=== PATIENT | female | born 1980 | race Caucasian/White ===

== ENCOUNTER → 2017-05-08 | Outpatient (CLI) | payer BC ==
[~2017-05-08] MED LIST: ACET-1311 PO; EFF50 PO; PRENTAB26 PO
--- NOTE | 2017-05-09 06:14 | PAP/PSG TECHNICIAN REPORT ---
[facility] Lettuce Cutter Polysomnogram Report Study name: None Report date: 05/09/2017 Study date: 05/08/2017 Referring Physician: DR. HARI TAO Name: ONDINA PORTILLO Interpreting Physician: Murali Dudley M.D. Date of : 1980 Lettuce Cutter: Sharda Garcia RPSGT. Sex: Female Age: 36 Study Type: PSG Weight: 201 lbs Height: 36 years, Height 5' 5" BMI: 33.44 Medications: CYMBALTA 60 MG, LAMICTAL 100 MG, TRAZODONE 50 MG Patient History 36 yr-old female here for a baseline study. She has a history of daytime sleepiness, frequent awakenings, snoring, and witnessed apneas. Her [place] scale is 10. The test was started on room air. ETCO2 testing was not utilized during this study. Room 1 Parameters Monitored NPSG: E1-M2, E2-M1, Fp1-M2, Fp2-M1, F3-M2, F4-M2, F4-M1, C3-M2, C4-M2, C4-M1, O1-M2, O2-M2, O2-M1, T3-M2, T4-M1, P3-M2, P4-M1, CHIN1, CHIN2, HR, EKG, Legs, PFLOW, SNOR, FLOW, CFLOW, Tidal Volume, THOR, ABDO, SpO2, PLTH, CPRESS, ETCO2 Wave, ETCO2, pH Sleep Architecture Sleep Stages Time at Lights Off 9:34:40 PM STAGES Time (min.) TST (%) Time at Lights On 5:38:40 AM Wake 42.0 -- Total Recording Time (TRT) 484.00 min. N1 27.0 6 Total Sleep Period (TSP) 451.5 min. N2 242.5 55 Total Sleep Time (TST) 442.0min. N3 50.0 11 Awake Time 42.0 min. REM 122.5 28 Wake after Sleep Onset 9.5 min. Sleep Efficiency (SE) 91 % Sleep Onset Latency (ROMA) 32.5 min. Number of Stage 1 Shifts None Awakenings 8 Stage Changes 69 Number of REM periods 4 REM 122.5 28 REM Latency 151.0 min. NREM 319.5 72 Body Position Analysis Supine Right Left Side Prone Vertical Total Sleep Time (min.) 465.5 11.5 0.0 11.50 0.0 0.0 Total Sleep Time (%) 97% 3% 0% 3 0% N/A% Total Sleep Time REM (min.) 122.5 0.0 0.0 None 0.0 0.0 Total Sleep Time NREM (min.) 308.0 11.5 0.0 None 0.0 0.0 Intermittent Wake (min.) 35.0 4.5 2.5 None 0.0 0.0 Total Sleep Period (%) 97% None None None None None Arousals Myoclonus (PLM) * Events Count Index Events Count Index Spontaneous 15 2 Events Awake (PLMW) 37 52.9 Respiratory 2 0.4 Events Asleep w/ Arousal (PLMA) 10 1.4 PLM 10 1 Events Asleep w/o Arousal (PLMS) 54 7.3 Snoring 14 2 Total Asleep 64 8.7 Total 40 5 Total 101 13 Respiratory Analysis * CA OA MA CH H RERA Total Count 3 0 0 0 4 2 7 Index 0.4 0.0 0.0 0 0.5 0 1.2 Mean Duration 11.2 0.0 0.0 0.00 15.6 18.1 14.7 Longest Duration 12.1 0.0 0.0 0.00 0.0 18.2 18.2 Respiratory Event Summary Total Supine ~Supine Right Left Prone REM NREM Apneas Count 3 3 0 0 N/A N/A 1 2 Index 0.4 0 0 0.0 N/A N/A 0 0 Hypopneas (4% Desat) Count 4 4 0 0 N/A N/A 2 2 Index 0.5 0.6 0 0.0 N/A N/A 1.0 0.4 Apneas & All Hypopneas Count 7 7 0 0 N/A N/A 3 4 Index 1.0 1 0 0 N/A N/A 1.5 0.8 Respiratory Events (Data Review Specialist+All Hyp+RERA) Count 7 9 0 0 N/A N/A 3 4 Index 1.2 1 0 0.0 N/A N/A 1.5 1.1 Respiratory Related Arousal Count 2 9 0 0 N/A N/A 0 3 Index 0.4 0 0 0 N/A N/A 0 1 Snoring Analysis Supine Right Left Prone REM NREM Total Snore duration 59.6 min Snores count 3,058 4 N/A N/A 62 3,000 3,062 Snore mean duration 1.2 Sec Snores index 426 21 N/A N/A 30.4 563.4 415.7 TST with snoring (%) 13.5% Desaturation Event Summary: Minimum %SpO2 Event Count Mean/Min/Max Duration(sec.) Desaturation Index % Time In Bed > 90 14 22.7 / 4.0 / 58.3 1.8 94.0 86 - 90 2 6.4 / 4.0 / 8.8 4.1 6.0 81 - 85 0 N/A 0.0 0.0 76 - 80 0 N/A 0.0 0.0 71 - 75 0 N/A 0.0 0.0 66 - 70 0 N/A 0.0 0.0 61 - 65 0 N/A 0.0 0.0 56 - 60 0 N/A 0.0 0.0 51 - 55 0 N/A 0.0 0.0 < 50 0 N/A 0.0 0.0 Total REM NREM Awake <50% 0.0 min. 0.0 min. 0.0 min. 0.0 min. 51 - 60% 0.0 min. 0.0 min. 0.0 min. 0.0 min. 61 - 70% 0.0 min. 0.0 min. 0.0 min. 0.0 min. 71 - 80% 0.0 min. 0.0 min. 0.0 min. 0.0 min. 81 - 90% 29.0 min. 0.2 min. 28.5 min. 0.3 min. 91 - 100% 454.9 min. 122.3 min. 291.0 min. 41.6 min. Average 93 93 92 94 Minimum SpO2 88 90 89 88 Desaturation Event Index 1.9 1.5 1.7 4.3 # Desat. Events below 89% 1 N/A N/A 1 Time(%) with Saturation below 89% 0.0 0.0 0.0 0.0 Time(min.) with Saturation below 89% 0.2 0.0 0.0 0.2 Time (mins) REM (mins) NREM (mins) % of TST SpO2 Below 90% 9 2 N7 0.2 SpO2 Below 88% 0 0 0 0 Heart Rate Analysis Min (bpm) Max (bpm) Average (bpm) Awake 54 106 78 NREM 51 104 71 REM 54 102 77 Overall 51 104 73 Supplemental O2 Values Minimum O2 level: None Value Start Time End Time Lettuce Cutter Comments Ms. Portillo slept in the right, left, and supine positions. No cardiac arrhythmias or PLMs noted. No bruxism noted. Snoring was noted and scored as a 2 on a scale of 1 through 5. (0=no snoring, 5=snoring loud enough to be heard through a closed door or down the [address] way) She did not wake up to use the restroom during the night. Ms. Portillo stated that she slept about the same as usual. The final report will be interpreted and signed by a sleep physician. The completed physician report will then be placed in the patient medical record. Therapy (cm H2O) 0 TIB (min.) 484.0 TST (min.) 442.0 Sleep Onset (min.) 32.5 REM Onset From Sleep (min.) 151.0 Sleep Efficiency % 91 Wakefulness (%) 9 Wakefulness (min.) 42.0 NREM 1 (%) 6 NREM 1 (min.) 27.0 NREM 2 (%) 55 NREM 2 (min.) 242.5 NREM 3 (%) 11 NREM 3 (min.) 50.0 REM (%) 28 REM (min.) 122.5 # Arousals 40 Arousal Index 5 # Snore 3,062 Snore Index 415.7 AHI 1.0 AHI Supine 1 AHI Non-Supine 0 NREM AHI 0.8 REM AHI 1.5 RDI 1.2 # Obstructive Apnea 0 # Central Apnea 3 # Mixed Apnea 0 # Hypopneas 4 RERAs 2 Total Respiratory Events 9 Time Below SpO2 89% (min.) 0.0 Mean NREM SpO2 (%) 92 Mean REM SpO2 (%) 93 Mean Sleep SpO2 (%) 93 Min NREM SpO2 (%) 89 Min REM SpO2 (%) 90 Position Supine (min.) 465.5 Position Non-supine (min.) 11.5 LM Index Sleep 8.7 LM Index NREM 7.1 LM Index REM 12.7 Mean Heart Rate (bpm) 73 Min Heart Rate (bpm) 51
--- NOTE | 2017-05-09 09:22 | POLYSOMNOGRAPH REPORT ---
CLINICAL DATA: 36-year-old female with BMI of 33.44 referred for evaluation of daytime sleepiness, frequent awakenings, snoring and witnessed apnea. Her Jber sleepiness score is 10/24. SLEEP ARCHITECTURE: Total recording time was 484 minutes. Total sleep period was 451.5 minutes. Total sleep time was 442 minutes divided between 319.5 minutes of non-REM sleep and 122.5 minutes of REM sleep. Sleep onset latency was delayed at 32.5 minutes. REM latency was mildly delayed at 151 minutes. Sleep efficiency was 91%. Wake after sleep onset was 9.5 minutes. Sleep consisted of stage N1 6%, stage N2 55%, stage N3 11% and REM 28%. AROUSAL DATA: 40 arousals were recorded for an index of 5 per hour. PLM DATA: 64 limb movements during sleep were noted for an index of 8.7 per hour with arousal index of 1.4 per hour. RESPIRATORY DATA: There was no evidence of clinically significant sleep apnea seen. The AHI was 1. There were 3 central apneic episodes, the longest duration of which was 12.1 seconds. There were 4 hypopneic episodes. The mean duration of hypopnea was 15.6 seconds. OXIMETRY DATA: No hypoxemia was seen. Oxygen rubi was 89%. Mean saturation was 93%. EKG: Heart rates ranged from 51 to 104 beats per minute. No arrhythmias were noted. MANAGER FLEET'S COMMENTS: The patient slept in the right, left, and supine positions. Snoring was mild, rated 2 on a scale of 1-5. IMPRESSION: No evidence of clinically significant sleep apnea/hypopnea, nocturnal hypoxemia or abnormal limb movements during sleep. RECOMMENDATIONS: The patient should continue to practice good sleep hygiene. ANÍBAL
== END | disposition home or self-care (01) ==
LOC: C.NEUR 20:00
PROVIDERS: ATTEND Internal Medicine
DX: R53.83 Other fatigue (principal); R06.83 Snoring; G47.30 Sleep apnea, unspecified

== ENCOUNTER 2020-10-14 21:01 | Observation (INO) ==
[2020-10-14] MEDS ORDERED: KETOROLAC TROMETHAMINE 15 MG/ML VIAL IV STA (21:28)
[2020-10-14] MEDS ORDERED: SODIUM CHLORIDE 0.9% 1000ML 1,000 ML IV SCH (21:30)
--- NOTE | 2020-10-14 21:34 | Emergency Department Note ---
Impression & Plan Vaginal bleeding, Tachycardia, S/P D&C (status post dilation and curettage) ED Provider Note NAME: ONDINA OSBORN AGE: 40 SEX: F : 1980 ARRIVES VIA: Walk-In INFORMANT: [Patient][] ED PROVIDER(S): [Rene Ochoa MD] CHIEF COMPLAINT: Vaginal bleeding HISTORY OF PRESENT ILLNESS: The patient is a 40-year-old female who states that today, in the morning, she had a D&C with a polyp removal and hysteroscopy. She left [facility] at around midday, 9 hours ago. Since leaving, she has been bleeding heavily. She has been soaking a pad and a depends every hour. She feels slightly lightheaded. She was short of breath at 1 point but she thinks she was just anxious. No chest pain. No real pelvic cramping. Patient states that she has noticed vaginal clots as well as the heavy bleeding. She is bleeding heavier now than she did before the procedure. The patient is not on any blood thinners. She states that she did take some ibuprofen earlier. She spoke to OB who referred her to our ED. REVIEW OF SYSTEMS: See HPI for pertinent positives and negatives. A total of ten systems were reviewed and were otherwise negative. PMHx/PSHx: See Below SOCIAL HISTORY: See Below. PHYSICAL EXAM: GENERAL: Patient is in no acute distress. HEENT: No acute trauma, normocephalic atraumatic, mucous membranes moist, no nasal congestion, no scleral icterus. NECK: No stridor, no adenopathy, no meningismus, trachea is midline. LUNGS: Clear to auscultation bilaterally, no wheeze, no rhonchi, breath sounds equal. HEART: Tachycardic, regular rhythm, no murmurs. ABDOMEN: Soft, mildly tender to the low abdomen/pelvis, bowel sounds positive, no hernias, no peritonitis. EXTREMITIES: No cyanosis or edema, full range of motion of all the joints without pain or difficulty, no signs for acute trauma. NEUROLOGIC: Oriented x 3, no acute motor or sensory deficits, no focal weakness. SKIN: No rash, no jaundice, no diaphoresis. Vaginal:. External vaginal exam was performed, her depends and pads were soaked with venous colored blood. DIFFERENTIAL DIAGNOSIS: Etiologies such as dysfunction uterine bleeding, bleeding dyscrasia, trauma, infection, postop bleeding, anemia, as well as others were entertained. EMERGENCY DEPARTMENT COURSE/PROCEDURES: ECG: Indication was tachycardia and bleeding. The ECG shows a normal sinus rhythm with some sinus arrhythmia. The rate is 75. The QTc is 457. There is no ST elevation, no PVCs. Continuous Cardiac Monitoring: An order was placed for continuous cardiac monitoring. The monitor shows a rate of 98 with normal sinus rhythm. MEDICAL DECISION MAKING: There is a moderate leukocytosis at 16,000, this could be consistent with infection or just the stress of her presentation. There is a normal hemoglobin, although, the patient's blood count has dropped one-point since her last check. Platelet count slightly high at 412. No coagulopathy. No significant electrolyte abnormality or kidney failure. No liver enzyme elevation. Blood type returned at O-. ECG showed a sinus rhythm, no dysrhythmia or ischemia. The patient was aggressively managed given her tachycardia and heavy bleeding. She was given 1 L of IV saline, she received IV Toradol for pain and to help with the bleeding. I did speak with OB right away after seeing the patient. They came to the ED. They performed a vaginal exam and dealt with the area of bleeding. The patient is being hospitalized for serial hemoglobins. She needs to be watched to be sure the bleeding stays controlled. The patient is currently resting comfortably. Her heart rate has decreased to a normal level. She is aware of the need to stay in the hospital. I did speak with case management, the on-call FURNITURE REMOVALIST physician will be doing the hospitalization orders. Past Med/Surg History Medical History Migraine Social History Smoking Status: Never smoker Preferred Language: Setswana Feels Safe at Home: Yes Allergies Allergies Allergy/AdvReac Type Severity Reaction Status Date / Time No Known Allergies Allergy Verified 10/14/20 22:42 Home Meds Home Medications Medication Instructions Recorded Confirmed adapalene 1 applic TOPICAL HS 10/14/20 10/14/20 duloxetine 60 mg PO DAILY 10/14/20 10/14/20 fiber 4 tab PO BID 10/14/20 10/14/20 ibuprofen 600 mg PO DIRECTED PRN 10/14/20 10/14/20 lamotrigine 50 mg PO QPM 10/14/20 10/14/20 lamotrigine 200 mg PO QPM 10/14/20 10/14/20 spironolactone 50 mg PO QPM 10/14/20 10/14/20 sumatriptan succinate 100 mg PO DIRECTED PRN 10/14/20 10/14/20 trazodone 50 - 100 mg PO HS 10/14/20 10/14/20 Results & Data (ED) Vital Signs Vital Signs - 24 hr 10/14/20 21:10 10/14/20 21:47 10/14/20 21:48 Temperature 36.6 C Temperature Source Temporal Artery Scan Pulse Rate 133 H 62 61 Respiratory Rate 16 20 19 Respiratory Depth Normal Blood Pressure 128/84 Blood Pressure Mean 98 Pulse Oximetry 97 Oxygen Delivery Method Room Air Sepsis Recent Fever Within 48 Hours No Sepsis New/Unexplained Change in Mental Status No Sepsis Action Taken by Nursing No Action Required 10/14/20 21:50 10/14/20 21:55 10/14/20 21:57 Temperature Temperature Source Pulse Rate 71 108 H Respiratory Rate 14 Respiratory Depth Blood Pressure Blood Pressure Mean 84 Pulse Oximetry 99 Oxygen Delivery Method Room Air Sepsis Recent Fever Within 48 Hours Sepsis New/Unexplained Change in Mental Status Sepsis Action Taken by Nursing 10/14/20 22:00 10/14/20 22:01 10/14/20 22:10 Temperature Temperature Source Pulse Rate 113 H 95 H 71 Respiratory Rate 17 24 16 Respiratory Depth Blood Pressure 118/74 113/71 Blood Pressure Mean 88 85 Pulse Oximetry Oxygen Delivery Method Sepsis Recent Fever Within 48 Hours Sepsis New/Unexplained Change in Mental Status Sepsis Action Taken by Nursing 10/14/20 22:11 10/14/20 22:20 10/14/20 22:21 Temperature Temperature Source Pulse Rate 87 93 H 76 Respiratory Rate 16 20 19 Respiratory Depth Blood Pressure 118/74 Blood Pressure Mean 88 Pulse Oximetry Oxygen Delivery Method Sepsis Recent Fever Within 48 Hours Sepsis New/Unexplained Change in Mental Status Sepsis Action Taken by Nursing 10/14/20 22:30 10/14/20 22:31 10/14/20 22:40 Temperature Temperature Source Pulse Rate 101 H 85 67 Respiratory Rate 15 18 16 Respiratory Depth Blood Pressure 121/82 Blood Pressure Mean 95 Pulse Oximetry Oxygen Delivery Method Sepsis Recent Fever Within 48 Hours Sepsis New/Unexplained Change in Mental Status Sepsis Action Taken by Nursing 10/14/20 22:50 Temperature Temperature Source Pulse Rate 83 Respiratory Rate 13 Respiratory Depth Blood Pressure Blood Pressure Mean Pulse Oximetry Oxygen Delivery Method Sepsis Recent Fever Within 48 Hours Sepsis New/Unexplained Change in Mental Status Sepsis Action Taken by [facility] Medications Current Medication List: was personally reviewed by me Laboratory Data Attestation: I reviewed the patient's lab results. Result diagrams: 10/14/20 21:55 10/14/20 21:55 Lab Results 10/14/20 10/14/20 10/14/20 Range/Units 21:55 21:55 21:55 WBC 16.70 H (4.8-10.8) K/uL RBC 4.22 (4.2-5.4) M/uL Hgb 12.3 (12.0-16.0) g/dL Hct 37.0 (37-47) % MCV 87.7 (80-100) fL MCH 29.1 (25-34) pg MCHC 33.2 (32-36) g/dL RDW Std Deviation 39.4 (36.4-46.3) fL RDW Coeff of Karen 12.3 (11.5-14.5) % Plt Count 412 H (130-400) K/uL MPV 9.6 (7.4-10.4) fL Immature Gran % (Auto) 0.6 % Neut % (Auto) 84.5 % Lymph % (Auto) 9.4 % Dodge % (Auto) 5.3 % Eos % (Auto) 0.0 % Baso % (Auto) 0.2 % Neut # (Auto) 14.11 H (1.4-6.5) K/uL Lymph # (Auto) 1.57 (1.2-3.4) K/uL Dodge # (Auto) 0.89 H (0.11-0.59) K/uL Eos # (Auto) 0.00 (0-0.5) K/uL Baso # (Auto) 0.03 (0-0.2) K/uL Immature Gran # (Auto) 0.10 H (0.00-0.02) K/uL PT 9.8 (9.0-12.0) Seconds INR 1.0 (0.9-1.1) APTT 23.6 (21.0-31.0) Seconds PTT Ratio 0.9 Sodium 139 (136-145) mmol/L Potassium 3.9 (3.5-5.1) mmol/L Chloride 107 (98-107) mmol/L Carbon Dioxide 24 (21-32) mmol/L Anion Gap 8.0 (3-11) BUN 12 (7-18) mg/dl Creatinine 1.20 (0.6-1.2) mg/dl Est Cr Clr Drug Dosing 71.3 ml/min Est GFR ( Amer) 65.5 Est GFR (Non-Af Amer) 56.5 BUN/Creatinine Ratio 9.6 L (10-20) Glucose 159 H (70-99) mg/dl Calcium 9.1 (8.5-10.1) mg/dl Total Bilirubin 0.3 (0.2-1) mg/dl AST 33 (15-37) U/L ALT 22 (12-78) U/L Alkaline Phosphatase 92 (45-117) U/L Total Protein 7.2 (6.4-8.2) gm/dl Albumin 3.8 (3.4-5.0) gm/dl Globulin 3.4 (2.5-4.0) gm/dl Albumin/Globulin Ratio 1.1 (0.9-2) Blood Type Antibody Screen 10/14/20 Range/Units 21:59 WBC (4.8-10.8) K/uL RBC (4.2-5.4) M/uL Hgb (12.0-16.0) g/dL Hct (37-47) % MCV (80-100) fL MCH (25-34) pg MCHC (32-36) g/dL RDW Std Deviation (36.4-46.3) fL RDW Coeff of Karen (11.5-14.5) % Plt Count (130-400) K/uL MPV (7.4-10.4) fL Immature Gran % (Auto) % Neut % (Auto) % Lymph % (Auto) % Dodge % (Auto) % Eos % (Auto) % Baso % (Auto) % Neut # (Auto) (1.4-6.5) K/uL Lymph # (Auto) (1.2-3.4) K/uL Dodge # (Auto) (0.11-0.59) K/uL Eos # (Auto) (0-0.5) K/uL Baso # (Auto) (0-0.2) K/uL Immature Gran # (Auto) (0.00-0.02) K/uL PT (9.0-12.0) Seconds INR (0.9-1.1) APTT (21.0-31.0) Seconds PTT Ratio Sodium (136-145) mmol/L Potassium (3.5-5.1) mmol/L Chloride (98-107) mmol/L Carbon Dioxide (21-32) mmol/L Anion Gap (3-11) BUN (7-18) mg/dl Creatinine (0.6-1.2) mg/dl Est Cr Clr Drug Dosing ml/min Est GFR ( Amer) Est GFR (Non-Af Amer) BUN/Creatinine Ratio (10-20) Glucose (70-99) mg/dl Calcium (8.5-10.1) mg/dl Total Bilirubin (0.2-1) mg/dl AST (15-37) U/L ALT (12-78) U/L Alkaline Phosphatase (45-117) U/L Total Protein (6.4-8.2) gm/dl Albumin (3.4-5.0) gm/dl Globulin (2.5-4.0) gm/dl Albumin/Globulin Ratio (0.9-2) Blood Type O Negative Antibody Screen NEGATIVE Administered Medications Discontinued Medications Ferric Subsulfate (Ferric Subsulfate 8 Gm Vial) 16 gm TOP ONE ONE Stop: 10/14/20 21:41 Last Admin: 10/14/20 22:15 Dose: 16 gm Documented by: [id number] Sodium Chloride (Nss 1000ml) 1,000 mls @ 999 mls/hr IV .Q1H1M SHOLA Stop: 10/14/20 22:30 Last Infusion: 10/14/20 23:19 Dose: 0 mls/hr Documented by: [id number] Admin: 10/14/20 22:15 Dose: 999 mls/hr Documented by: [id number] Ketorolac Tromethamine (Ketorolac Tromethamine 15 Mg/Ml Vial) 15 mg IV ONE STA Stop: 10/14/20 21:29 Last Admin: 10/14/20 22:15 Dose: 15 mg Documented by: [id number] Morphine Sulfate (Morphine Sulfate 2 Mg/Ml Carp) 2 mg IV NOW STA Stop: 10/14/20 22:24 Last Admin: 10/14/20 22:44 Dose: 2 mg Documented by: [id number] Discharge Plan Visit Data Chief Complaint: Vaginal Bleeding Stated Complaint: HEAVY BLEEDING, CLOTING AFTER DNC TODAY ED Provider: Rene Ochoa Discharge Problem: Vaginal bleeding, Tachycardia, S/P D&C (status post dilation and curettage) Patient Disposition: Admitted As Inpatient Condition: Fair Forms Stand Alone Forms: [facility], Virtual Emergency Department, Important Visit Information Prescriptions Prescriptions: No Action lamotrigine 200 mg tablet 200 mg PO QPM RF: 0 trazodone 50 mg tablet 50 - 100 mg PO HS RF: 0 sumatriptan succinate 100 mg tablet 100 mg PO DIRECTED PRN (Reason: Migraine Headache) RF: 0 spironolactone 25 mg tablet 50 mg PO QPM RF: 0 lamotrigine 25 mg tablet 50 mg PO QPM RF: 0 duloxetine 60 mg capsule,delayed release(DR/EC) 60 mg PO DAILY RF: 0 adapalene 0.3 % gel 1 applic TOPICAL HS RF: 0 fiber Tablet 4 tab PO BID RF: 0 ibuprofen 600 mg tablet 600 mg PO DIRECTED PRN (Reason: Pain) RF: 0 Referrals Referrals: Blake Weber MD [Primary Care Provider] -
[2020-10-14] MEDS ORDERED: FERRIC SUBSULFATE 8 GM VIAL TOP ONE (21:40)
[2020-10-14 22:09] LABS: Basophils # (auto) 0.03 K/uL (0-0.2); Basophils % (auto) 0.2 %; Hemoglobin 12.3 g/dL (12.0-16.0); Immature Granulocytes % (auto) 0.6 %; Lymphocytes # (auto) 1.57 K/uL (1.2-3.4); Lymphocytes % (auto) 9.4 %; Mean Corpuscular Hemoglobin 29.1 pg (25-34); Mean Corpuscular Hgb Conc 33.2 g/dL (32-36); Mean Corpuscular Volume 87.7 fL (80-100); Mean Platelet Volume 9.6 fL (7.4-10.4); Monocytes # (auto) 0.89 K/uL (0.11-0.59); Monocytes % (auto) 5.3 %; Neutrophils # (auto) 14.11 K/uL (1.4-6.5); Neutrophils % (auto) 84.5 %; Platelet Count 412 K/uL (130-400); RDW Coefficient of Variation 12.3 % (11.5-14.5); RDW Standard Deviation 39.4 fL (36.4-46.3); Red Blood Count 4.22 M/uL (4.2-5.4)
[2020-10-14 22:19] LABS: Partial Thromboplastin Ratio 0.9; Partial Thromboplastin Time 23.6 Seconds (21.0-31.0); Prothrombin Time 9.8 Seconds (9.0-12.0)
[2020-10-14] MEDS ORDERED: MoRPHine SULFATE 2 MG/ML CARP IV STA (22:23)
[2020-10-14] MEDS ORDERED: POLYETHYLENE (MIRALAX) 17 GM PACK PO PRN (22:24)
[2020-10-14] MEDS ORDERED: MAGNESIUM HYDROXIDE SUSP 30 ML UDC PO PRN (22:24)
[2020-10-14] MEDS ORDERED: ONDANSETRON INJ 2 MG/ML 2 ML VIAL IV PRN (22:24)
[2020-10-14] MEDS ORDERED: ALUMINUM/MAGNESIUM/SIMETH (MAALOX MAX) 30 ML UDC PO PRN (22:24)
[2020-10-14] MEDS ORDERED: ACETAMINOPHEN 325 MG TAB PO PRN (22:24)
[2020-10-14 22:26] LABS: Albumin Level 3.8 gm/dl (3.4-5.0); BUN Creatinine Ratio 9.6 (10-20); Calcium 9.1 mg/dl (8.5-10.1); Creatinine Clr Calc Pharmacy 71.3 ml/min; Est GFR (African American) 65.5; Est GFR (Non-African American) 56.5; Potassium 3.9 mmol/L (3.5-5.1)
[2020-10-14 22:29] LABS: Albumin Globulin Ratio 1.1 (0.9-2); Bilirubin,Total 0.3 mg/dl (0.2-1); Globulin 3.4 gm/dl (2.5-4.0); Total Protein 7.2 gm/dl (6.4-8.2)
[2020-10-14] MEDS ORDERED: LACTATED RINGER'S 1,000 ML IV SCH (22:30)
--- NOTE | 2020-10-14 22:48 | OB/GYN Consultation ---
Date of Consultation October 14, 2020 Assessment & Plan (1) S/P cervical polypectomy: (2) Episode of heavy vaginal bleeding: Patient is a 40 yo female who had Hysteroscopy, D&C, cervical polypectomy today at [address] Odell. Now with active VB Stopped after cleaning Cervix hemostatic No s/s of intrauterine nor pelvic bleeding VSS Afebrile H&H normal Cervix is covered with hemostatic agents and packed Plan to observe, monitor, remove pack in 12 hours and then d/c home Dr Odell is aware and agrees with above History of Present Illness History of Present Illness Patient is a 40 yo female who had Hysteroscopy, D&C, cervical polypectomy today at [address] Odell. Her bleeding was light initially and got heavier after 5 pm, then after 6 pm she passed large cloths of orange size. She soaked through 1 pad and diaper on the way here in 1 hour. No pain Dizzines started just here after she came No fever/ cills/ N&V She ate dinner at 5 pm and kept it in. No h/o bleeding disorder/ pp hemorrhage. Allergies Allergy/AdvReac Type Severity Reaction Status Date / Time No Known Allergies Allergy Verified 10/14/20 22:42 Home Medications Medication Instructions Recorded Confirmed Type Acetaminophen (Tylenol) 650 mg PO Q4HR PRN #0 05/30/07 History Multivit/Min/Iron/Fol Ac/Pren 1 tab PO DAILY #0 01/15/10 History ( Vitamin) Venlafaxine Hcl (Effexor *) 100 mg PO DAILY #0 01/15/10 History Patient History Social History Smoking Status: Never smoker Preferred Language: Upper Sorbian Feels Safe at Home: Yes Review of Systems Review of Systems: All systems reviewed & are unremarkable except as noted in HPI & below Physical Exam Constitutional: WD/WN, vitals as above (pulse was 133 on admisison, came doen to 70-80's) well developed and + acute distress (she was anxious) Gastrointestinal (Abdomen): normal bowel sounds, soft, nontender, no hepatosplenomegaly (no pelvic tenderness) Genitourinary: no vaginal lesions, no adnexal mass Speculum: emptied large about 00 ml cloths from vagina, cervix is seen as large patuolus, os is wide about 2 cm, no bleeding rom os, neither from tenakulum sites, no bleeding from cervical canal I cleaned with sponges, waited for 15 minutes ( for instruments and Monsels soluton) she had no bleeding from there at those times. Then applied Monsel's solution over cervix and canal and placed surgicelx2 in canal, packed with small pack Bed side US: uterus normal, normal cavity, no sign of bleeding seen, adnexa normal, culde sac empty Results & Data ([facility]) Vital Signs (Past 12 Hours) Vital Signs Temp Pulse Resp BP Pulse Ox 10/14/20 21:55 99 10/14/20 21:10 36.6 C 133 H 16 128/84 97 Laboratory Results Lab Results 10/14/20 10/14/20 10/14/20 Range/Units 21:55 21:55 21:55 WBC 16.70 H (4.8-10.8) K/uL RBC 4.22 (4.2-5.4) M/uL Hgb 12.3 (12.0-16.0) g/dL Hct 37.0 (37-47) % MCV 87.7 (80-100) fL MCH 29.1 (25-34) pg MCHC 33.2 (32-36) g/dL RDW Std Deviation 39.4 (36.4-46.3) fL RDW Coeff of Karen 12.3 (11.5-14.5) % Plt Count 412 H (130-400) K/uL MPV 9.6 (7.4-10.4) fL Immature Gran % (Auto) 0.6 % Neut % (Auto) 84.5 % Lymph % (Auto) 9.4 % Crosby % (Auto) 5.3 % Eos % (Auto) 0.0 % Baso % (Auto) 0.2 % Neut # (Auto) 14.11 H (1.4-6.5) K/uL Lymph # (Auto) 1.57 (1.2-3.4) K/uL Crosby # (Auto) 0.89 H (0.11-0.59) K/uL Eos # (Auto) 0.00 (0-0.5) K/uL Baso # (Auto) 0.03 (0-0.2) K/uL Immature Gran # (Auto) 0.10 H (0.00-0.02) K/uL PT 9.8 (9.0-12.0) Seconds INR 1.0 (0.9-1.1) APTT 23.6 (21.0-31.0) Seconds PTT Ratio 0.9 Sodium 139 (136-145) mmol/L Potassium 3.9 (3.5-5.1) mmol/L Chloride 107 (98-107) mmol/L Carbon Dioxide 24 (21-32) mmol/L Anion Gap 8.0 (3-11) BUN 12 (7-18) mg/dl Creatinine 1.20 (0.6-1.2) mg/dl Est Cr Clr Drug Dosing 71.3 ml/min Est GFR ( Amer) 65.5 Est GFR (Non-Af Amer) 56.5 BUN/Creatinine Ratio 9.6 L (10-20) Glucose 159 H (70-99) mg/dl Calcium 9.1 (8.5-10.1) mg/dl Total Bilirubin 0.3 (0.2-1) mg/dl AST 33 (15-37) U/L ALT 22 (12-78) U/L Alkaline Phosphatase 92 (45-117) U/L Total Protein 7.2 (6.4-8.2) gm/dl Albumin 3.8 (3.4-5.0) gm/dl Globulin 3.4 (2.5-4.0) gm/dl Albumin/Globulin Ratio 1.1 (0.9-2)
[2020-10-14] MEDS ORDERED: traZODone HCL 50 MG TAB PO ONE (23:38)
[2020-10-15] MEDS ORDERED: lamoTRIgine 100 MG TAB PO SCH
[2020-10-15] MEDS: oxyCODONE/ACETAMINOPHEN 5mg/325mg TAB PO PRN ×3 (01:20→08:59)
[2020-10-15] MEDS: ceFAZolin 2000MG 2,000 MG/15 ML SYR IV SCH ×2 (01:28→08:46)
[2020-10-15 07:21] LABS: Basophils # (auto) 0.04 K/uL (0-0.2); Basophils % (auto) 0.3 %; Eosinophils # (auto) 0.05 K/uL (0-0.5); Eosinophils % (auto) 0.4 %; Hemoglobin 8.9 g/dL (12.0-16.0); Immature Granulocytes # (auto) 0.08 K/uL (0.00-0.02); Immature Granulocytes % (auto) 0.6 %; Lymphocytes # (auto) 2.34 K/uL (1.2-3.4); Lymphocytes % (auto) 18.4 %; Mean Corpuscular Volume 87.9 fL (80-100); Mean Platelet Volume 9.3 fL (7.4-10.4); Monocytes # (auto) 1.12 K/uL (0.11-0.59); Monocytes % (auto) 8.8 %; Neutrophils % (auto) 71.5 %; Platelet Count 286 K/uL (130-400); RDW Coefficient of Variation 12.3 % (11.5-14.5); RDW Standard Deviation 39.8 fL (36.4-46.3); Red Blood Count 3.07 M/uL (4.2-5.4); White Blood Count 12.73 K/uL (4.8-10.8)
--- NOTE | 2020-10-15 08:25 | Gynecologic Progress Note ---
Date of Service October 15, 2020 Assessment & Plan Admission and Anticipated Discharge Date Admission Date: October 14, 2020 Subjective POD#1 s/polypectomy by Dr. Flower at [facility] doing fine no pain or bleeding tolerating diet passing gas Physical Exam Constitutional: WD/WN, vitals as above comfortable abdomen is soft and non-tender Norton draining clear urine packing in place with dry pad plan to remove Norton and packing and d/c later today Results & Data ([facility]) Vital Signs (Past 12 Hours) Vital Signs Temp Pulse Pulse Resp BP BP Pulse Ox 10/15/20 05:00 36.7 C 92 H 16 113/66 98 10/15/20 00:25 36.8 C 80 16 121/72 99 10/14/20 23:30 74 12 108/60 10/14/20 23:00 76 14 110/70 10/14/20 22:50 83 13 10/14/20 22:40 67 16 10/14/20 22:31 85 18 10/14/20 22:30 101 H 15 121/82 10/14/20 22:21 76 19 10/14/20 22:20 93 H 20 118/74 10/14/20 22:11 87 16 10/14/20 22:10 71 16 113/71 10/14/20 22:01 95 H 24 10/14/20 22:00 113 H 17 118/74 10/14/20 21:57 108 H 10/14/20 21:55 99 10/14/20 21:50 71 14 10/14/20 21:48 61 19 10/14/20 21:47 62 20 10/14/20 21:10 36.6 C 133 H 16 128/84 97 Laboratory Results Laboratory Results - last 72 hr 10/14/20 10/14/20 10/14/20 21:55 21:55 21:55 WBC 16.70 H RBC 4.22 Hgb 12.3 Hct 37.0 MCV 87.7 MCH 29.1 MCHC 33.2 RDW Std Deviation 39.4 RDW Coeff of Karen 12.3 Plt Count 412 H MPV 9.6 Immature Gran % (Auto) 0.6 Neut % (Auto) 84.5 Lymph % (Auto) 9.4 [place] % (Auto) 5.3 Eos % (Auto) 0.0 Baso % (Auto) 0.2 Neut # (Auto) 14.11 H Lymph # (Auto) 1.57 [place] # (Auto) 0.89 H Eos # (Auto) 0.00 Baso # (Auto) 0.03 Immature Gran # (Auto) 0.10 H Absolute Nucleated RBC Nucleated RBC % (auto) Neutrophils % (Manual) Band Neutrophils % Lymphocytes % (Manual) Prolymphocyte % Reactive Lymphs % (Man) Monocytes % (Manual) Eosinophils % (Manual) Basophils % (Manual) Metamyelocytes % (Man) Myelocytes % (Man) Promyelocytes % (Man) Blast Cells % (Manual) Plasma Cell % (Manual) Other Cells % Nucleated RBC % Neutrophils # (Manual) Band Neutrophils # Total Absolute Neuts Lymphocytes # (Manual) Prolymphocyte # Reactive Lymphs # Total Abs Lymphocytes Monocytes # (Manual) Eosinophils # (Manual) Basophils # (Manual) Metamyelocytes # (Man) Myelocytes # (Manual) Promyelocytes # (Man) Blast Cells # (Man) Plasma Cell # (Manual) Other Cells # Nucleated RBCs # (Man) Hypersegmented Neuts Hyposegmented Neuts Hypogranular Neuts Large Granular Lymphs # Lrg Granular Lymphs Hairy Cells Smudge Cells Toxic Granulation Toxic Vacuolation Dohle Bodies Subha Rods Platelet Estimate Hypogranular Platelets Clumped Platelets Giant Platelets Platelet Satelliting RBC Morphology Polychromasia Hypochromasia Poikilocytosis Basophilic Stippling Anisocytosis Microcytosis Macrocytosis Spherocytes Pappenheimer Bodies Sickle Cells Target Cells Tear Drop Cells Ovalocytes Stomatocytes Mercer-Lehighton Bodies Echinocytes Acanthocytes (Spur) Rouleaux RBC Agglutinates Schistocytes RBC Morph Comment Sezary Cell PT 9.8 INR 1.0 APTT 23.6 PTT Ratio 0.9 Sodium 139 Potassium 3.9 Chloride 107 Carbon Dioxide 24 Anion Gap 8.0 BUN 12 Creatinine 1.20 Est Cr Clr Drug Dosing 71.3 Est GFR ( Amer) 65.5 Est GFR (Non-Af Amer) 56.5 BUN/Creatinine Ratio 9.6 L Glucose 159 H Calcium 9.1 Total Bilirubin 0.3 AST 33 ALT 22 Alkaline Phosphatase 92 Total Protein 7.2 Albumin 3.8 Globulin 3.4 Albumin/Globulin Ratio 1.1 COVID-19 Eval Order SARS-CoV-2, RNA, NAAT Blood Type Antibody Screen 10/14/20 10/14/20 10/14/20 21:59 23:45 23:45 WBC RBC Hgb Hct MCV MCH MCHC RDW Std Deviation RDW Coeff of Karen Plt Count MPV Immature Gran % (Auto) Neut % (Auto) Lymph % (Auto) [place] % (Auto) Eos % (Auto) Baso % (Auto) Neut # (Auto) Lymph # (Auto) [place] # (Auto) Eos # (Auto) Baso # (Auto) Immature Gran # (Auto) Absolute Nucleated RBC Nucleated RBC % (auto) Neutrophils % (Manual) Band Neutrophils % Lymphocytes % (Manual) Prolymphocyte % Reactive Lymphs % (Man) Monocytes % (Manual) Eosinophils % (Manual) Basophils % (Manual) Metamyelocytes % (Man) Myelocytes % (Man) Promyelocytes % (Man) Blast Cells % (Manual) Plasma Cell % (Manual) Other Cells % Nucleated RBC % Neutrophils # (Manual) Band Neutrophils # Total Absolute Neuts Lymphocytes # (Manual) Prolymphocyte # Reactive Lymphs # Total Abs Lymphocytes Monocytes # (Manual) Eosinophils # (Manual) Basophils # (Manual) Metamyelocytes # (Man) Myelocytes # (Manual) Promyelocytes # (Man) Blast Cells # (Man) Plasma Cell # (Manual) Other Cells # Nucleated RBCs # (Man) Hypersegmented Neuts Hyposegmented Neuts Hypogranular Neuts Large Granular Lymphs # Lrg Granular Lymphs Hairy Cells Smudge Cells Toxic Granulation Toxic Vacuolation Dohle Bodies Subha Rods Platelet Estimate Hypogranular Platelets Clumped Platelets Giant Platelets Platelet Satelliting RBC Morphology Polychromasia Hypochromasia Poikilocytosis Basophilic Stippling Anisocytosis Microcytosis Macrocytosis Spherocytes Pappenheimer Bodies Sickle Cells Target Cells Tear Drop Cells Ovalocytes Stomatocytes Mercer-Lehighton Bodies Echinocytes Acanthocytes (Spur) Rouleaux RBC Agglutinates Schistocytes RBC Morph Comment Sezary Cell PT INR APTT PTT Ratio Sodium Potassium Chloride Carbon Dioxide Anion Gap BUN Creatinine Est Cr Clr Drug Dosing Est GFR ( Amer) Est GFR (Non-Af Amer) BUN/Creatinine Ratio Glucose Calcium Total Bilirubin AST ALT Alkaline Phosphatase Total Protein Albumin Globulin Albumin/Globulin Ratio COVID-19 Eval [facility] SARS-CoV-2, RNA, NAAT NEGATIVE Blood Type O Negative Antibody Screen NEGATIVE 10/15/20 10/15/20 06:13 06:56 WBC Cancelled 12.73 H RBC Cancelled 3.07 L Hgb Cancelled 8.9 L D Hct Cancelled 27.0 L MCV Cancelled 87.9 MCH Cancelled 29.0 MCHC Cancelled 33.0 RDW Std Deviation Cancelled 39.8 RDW Coeff of Karen Cancelled 12.3 Plt Count Cancelled 286 MPV Cancelled 9.3 Immature Gran % (Auto) Cancelled 0.6 Neut % (Auto) Cancelled 71.5 Lymph % (Auto) Cancelled 18.4 [place] % (Auto) Cancelled 8.8 Eos % (Auto) Cancelled 0.4 Baso % (Auto) Cancelled 0.3 Neut # (Auto) Cancelled 9.10 H Lymph # (Auto) Cancelled 2.34 [place] # (Auto) Cancelled 1.12 H Eos # (Auto) Cancelled 0.05 Baso # (Auto) Cancelled 0.04 Immature Gran # (Auto) Cancelled 0.08 H Absolute Nucleated RBC Cancelled Nucleated RBC % (auto) Cancelled Neutrophils % (Manual) Cancelled Band Neutrophils % Cancelled Lymphocytes % (Manual) Cancelled Prolymphocyte % Cancelled Reactive Lymphs % (Man) Cancelled Monocytes % (Manual) Cancelled Eosinophils % (Manual) Cancelled Basophils % (Manual) Cancelled Metamyelocytes % (Man) Cancelled Myelocytes % (Man) Cancelled Promyelocytes % (Man) Cancelled Blast Cells % (Manual) Cancelled Plasma Cell % (Manual) Cancelled Other Cells % Cancelled Nucleated RBC % Cancelled Neutrophils # (Manual) Cancelled Band Neutrophils # Cancelled Total Absolute Neuts Cancelled Lymphocytes # (Manual) Cancelled Prolymphocyte # Cancelled Reactive Lymphs # Cancelled Total Abs Lymphocytes Cancelled Monocytes # (Manual) Cancelled Eosinophils # (Manual) Cancelled Basophils # (Manual) Cancelled Metamyelocytes # (Man) Cancelled Myelocytes # (Manual) Cancelled Promyelocytes # (Man) Cancelled Blast Cells # (Man) Cancelled Plasma Cell # (Manual) Cancelled Other Cells # Cancelled Nucleated RBCs # (Man) Cancelled Hypersegmented Neuts Cancelled Hyposegmented Neuts Cancelled Hypogranular Neuts Cancelled Large Granular Lymphs Cancelled # Lrg Granular Lymphs Cancelled Hairy Cells Cancelled Smudge Cells Cancelled Toxic Granulation Cancelled Toxic Vacuolation Cancelled Dohle Bodies Cancelled Subha Rods Cancelled Platelet Estimate Cancelled Hypogranular Platelets Cancelled Clumped Platelets Cancelled Giant Platelets Cancelled Platelet Satelliting Cancelled RBC Morphology Cancelled Polychromasia Cancelled Hypochromasia Cancelled Poikilocytosis Cancelled Basophilic Stippling Cancelled Anisocytosis Cancelled Microcytosis Cancelled Macrocytosis Cancelled Spherocytes Cancelled Pappenheimer Bodies Cancelled Sickle Cells Cancelled Target Cells Cancelled Tear Drop Cells Cancelled Ovalocytes Cancelled Stomatocytes Cancelled Mercer-Lehighton Bodies Cancelled Echinocytes Cancelled Acanthocytes (Spur) Cancelled Rouleaux Cancelled RBC Agglutinates Cancelled Schistocytes Cancelled RBC Morph Comment Cancelled Sezary Cell Cancelled PT INR APTT PTT Ratio Sodium Potassium Chloride Carbon Dioxide Anion Gap BUN Creatinine Est Cr Clr Drug Dosing Est GFR ( Amer) Est GFR (Non-Af Amer) BUN/Creatinine Ratio Glucose Calcium Total Bilirubin AST ALT Alkaline Phosphatase Total Protein Albumin Globulin Albumin/Globulin Ratio COVID-19 Eval Order SARS-CoV-2, RNA, NAAT Blood Type Antibody Screen
[2020-10-15] MEDS ORDERED: VENLAFAXINE HCL 100 MG PO SCH (09:00)
[2020-10-15] MEDS ORDERED: DULoxetine HCL 60 MG CAP PO SCH (09:00)
[2020-10-15] MEDS ORDERED: CALCIUM POLYCARBOPHIL 625MG TAB PO SCH (09:00)
[2020-10-15] MEDS ORDERED: PRENATAL VITAMIN 1 TAB PO SCH (09:00)
--- NOTE | 2020-10-15 11:38 | Gynecologic Progress Note ---
Date of Service October 15, 2020 Assessment & Plan (1) S/P cervical polypectomy: (2) Episode of heavy vaginal bleeding: Patient is a 40 yo female who had Hysteroscopy, D&C, cervical polypectomy today at [address] Odell. Packing removed D/c dewitt Observe until able to void, then discharge to home. Reviewed verbal discharge instructions. Admission and Anticipated Discharge Date Admission Date: October 14, 2020 Subjective POD#1 s/polypectomy by Dr. Flower at [facility] doing well. Evaluated by attending this AM. Packing to be removed, peripad dry Review of Systems Review of Systems: All systems reviewed & are unremarkable except as noted in HPI & below Physical Exam Genitourinary: normal external appearance packing removed with gentle traction, dry, introitus inspected and no further packing material or bleeding appreciated Results & Data ([facility]) Vital Signs (Past 12 Hours) Vital Signs Temp Pulse Pulse Resp BP Pulse Ox 10/15/20 07:42 36.8 C 80 18 118/75 98 10/15/20 05:00 36.7 C 92 H 16 113/66 98 10/15/20 00:25 36.8 C 80 16 121/72 99
[2020-10-15] MEDS ORDERED: lamoTRIgine 25 MG TAB PO SCH (21:00)
--- NOTE | 2020-10-16 05:06 | Electrocardiogram Report ---
Test Reason : Blood Pressure : / mmHG Vent. Rate : 075 BPM Atrial Rate : 075 BPM P-R Int : 116 ms QRS Dur : 088 ms QT Int : 410 ms P-R-T Axes : 061 044 035 degrees QTc Int : 457 ms Normal sinus rhythm with sinus arrhythmia Normal ECG When compared with ECG of 07-DEC-2004 19:16, No significant change was found Confirmed by Gee Johnston ([id number]) on 10/16/2020 5:06:21 AM Referred By: Desire Odell Confirmed By:Gee Johnston
--- NOTE | 2020-10-25 11:55 | Discharge Summary (DS) ---
HOSPITAL COURSE AND REASON FOR ADMISSION: The patient is a 40-year-old female status post cervical polypectomy on 10/14/[address] Odell at [facility]. After having a hysteroscopy, D and C and cervical polypectomy in the morning, she presented with heavy vaginal bleeding. Hospital course consisted of hemostatic topical Monsel solution and packing. She was observed for 12 hours overnight, given IV fluids and for observation. Her bleeding stopped. Packing was removed and the patient was discharged home. Homegoing instructions were given. The patient to follow up in the office with Dr. Odell. Regular diet on discharge. Medications include Motrin for pain and no further intervention was done at that time. Condition on discharge was stable.
== END 2020-10-15 14:10 | disposition home or self-care (01) ==
LOC: ED 21:01 → 4S2 21:01